=== PATIENT | male | born 1950 | race Caucasian/White ===

== ENCOUNTER 2019-06-21 23:30 | Inpatient (IN) | payer OTHER ==
[~2019-06-21] VITALS: Ht 167.6 cm; Wt 83.4 kg
[2019-06-21] MEDS ORDERED: VENL75ER PO (23:50)
[2019-06-21] MEDS ORDERED: METO25 PO (23:51)
[2019-06-21] MEDS ORDERED: OMEPRAZOLE20 MG PO (23:51)
[2019-06-21] MEDS ORDERED: ONDA4ODT PO (23:52)
[2019-06-21] MEDS ORDERED: Aspir 8181 MG PO (23:52)
[2019-06-21] MEDS ORDERED: TAMS.4ER PO (23:52)
[2019-06-21] MEDS ORDERED: GABA300 PO (23:52)
[2019-06-21] MEDS ORDERED: DEXA.5 (23:53)
[2019-06-22] LABS: Hematocrit 33.1 % (37.0-53.0); Hemoglobin 10.7 g/dL (13.5-17.5); Mean Corpuscular HGB Conc 32.3 g/dL (31.5-36.5); Mean Platelet Volume 9.3 fL (9.1-12.4); Platelet Count 56 K/mm3 (150-400); RDW Coefficient Variation 14.3 % (11.7-14.2); RDW Standard Deviation 49.7 fL (35.1-46.3); Red Blood Cell Count 3.45 M/mm3 (4.30-5.90)
[2019-06-22 00:04] LABS: BASOPHILS ABSOLUTE AUTO 0.01 K/mm3 (0.00-0.23); BASOPHILS PERCENT AUTO 1 % (0-2); EOSINOPHILS PERCENT AUTO 0 % (0-6); IMMATURE GRAN PERCENT AUTO 0 % (0-1); LYMPHOCYTES ABSOLUTE AUTO 0.59 K/mm3 (0.84-5.20); LYMPHOCYTES PERCENT AUTO 70 % (21-46); MONOCYTES ABSOLUTE AUTO 0.13 K/mm3 (0.16-1.47); MONOCYTES PERCENT AUTO 16 % (4-13); Mean Corpuscular Volume 96 fL (80-100); NEUTROPHILS ABSOLUTE AUTO 0.11 K/mm3 (1.96-9.15); NEUTROPHILS PERCENT AUTO 13 % (41-73)
[2019-06-22 00:05] LABS: White Blood Cell Count 0.84 K/mm3 (4.00-11.30)
[2019-06-22 00:17] LABS: Alanine Aminotransfer (ALT/SGP 27 U/L (12-78); Albumin, Blood 2.6 g/dL (3.4-5.0); Albumin/Globulin Ratio 0.7 (0.8-1.8); Alk Phos 82 U/L (50-136); Anion Gap 6 mmol/L (6-16); Aspartate Aminotrans (AST/SGOT 11 U/L (12-37); Bilirubin, Total 0.7 mg/dL (0.1-1.0); Blood Urea Nitrogen 24 mg/dL (8-24); Bun/Creatinine Ratio 26.4 (12.0-20.0); CO2, Blood 32 mmol/L (21-32); Calcium, Blood 7.3 mg/dL (8.5-10.1); Chloride, Blood 101 mmol/L (98-108); Creatinine, Blood 0.91 mg/dL (0.60-1.20); Globulin, Blood 3.8 g/dL (2.2-4.0); Glomerular Filtration Rate >60 (60-); Glucose, Blood 91 mg/dL (70-99); Potassium, Blood 2.9 mmol/L (3.5-5.5); Sodium, Blood 139 mmol/L (136-145); Total Protein, Blood 6.4 g/dL (6.4-8.2); Troponin I <0.015 ng/mL (0.000-0.040)
[2019-06-22 00:21] LABS: BAND PERCENT MAN 6 % (0-8); BASOPHILS PERCENT MAN 1 % (0-2); EOSINOPHILS PERCENT MAN 0 % (0-6); LYMPHOCYTES ABSOLUTE MAN 0.57 K/mm3 (0.84-5.20); LYMPHOCYTES PERCENT MAN 69 % (21-46); MONOCYTES PERCENT MAN 13 % (4-13); SEG NEUTROPHILS PERCENT MAN 6 % (41-73); TOTAL CELLS COUNTED 101
[2019-06-22 00:22] LABS: OTHER CELL PERCENT MAN 5 % (0-0)
--- NOTE | 2019-06-22 05:17 | NUR ---
Dr Lm Mc answering service notified of consult order from Dr Trujillo. THey Will follow up with .
--- NOTE | 2019-06-22 06:31 | NUR ---
68 YR OLD MALE ADMITTED TO THE FLOOR FROM THE ED WITH DX SYNCOPE AND RIGHT MIDDLE LOBE PNEUMONIA. PLACED IN NEUTROPENIC PRECAUTIONS HE HAS DX OF LUNG CANCER WITH RIGHT UPPER LOBECTOMY, GRZEGORZ TO THE BRAIN. STATED HAD CHEMO ABOUT A WEEK AND A HALF AGO. TOO WEAK TO GET UP TO STANDING WEIGH, SO WT WAS TAKEN BY BED. IV ABX INFUSING. RESP PANEL SENT TO LAB. CONSULT FOR ONCOLOGY CALLED IN TO DR BERNICE BOLAND ANSWERING SERVICE WHO SAID THEY WOULD NOTIFY MD. CALL LIGHT IN REACH,
[2019-06-22 06:39] LABS: Source, Urine Clean Catch
[2019-06-22 06:43] LABS: Blood, Urine 4+ (Neg); Glucose Qualitative, Urine Neg (Neg); Ketones, Urine 1+ (Neg); Leukocyte Esterase, Urine 1+ (Neg); Nitrite, Urine Neg (Neg); Protein, Urine 2+ (Neg); Urobilinogen, Urine 4+ (Normal)
[2019-06-22 06:52] LABS: Bilirubin, Urine 1+ (Neg)
[2019-06-22 06:53] LABS: Appearance, Urine Clear (Clear); Color, Urine Amber (P-Yellow)
[2019-06-22 06:54] LABS: Bacteria Rare /hpf; Mucus Light (0-Heavy); Red Blood Cells, Urine 25-50 /hpf (0-2); Squamous Epithelial Cells Rare /hpf (Few)
[2019-06-22 09:02] LABS: Adenovirus Not Detected (NOT DETECT); Coronavirus 229E Not Detected (NOT DETECT); Coronavirus HKU1 Not Detected (NOT DETECT); Coronavirus NL63 Not Detected (NOT DETECT); Coronavirus OC43 Not Detected (NOT DETECT); Human Metapneumovirus Not Detected (NOT DETECT); Human Rhinovirus/Enterovirus Not Detected (NOT DETECT); Influenza A Not Detected (NOT DETECT); Influenza A/H1 Not Detected (NOT DETECT)
[2019-06-22 09:03] LABS: Bordetella pertussis Not Detected (NOT DETECT); Chlamydophila pneumoniae Not Detected (NOT DETECT); Influenza A/2009-H1 Not Detected (NOT DETECT); Influenza A/H3 Not Detected (NOT DETECT); Influenza B Not Detected (NOT DETECT); Mycoplasma pneumoniae Not Detected (NOT DETECT); Parainfluenza Virus 1 Not Detected (NOT DETECT); Parainfluenza Virus 2 Not Detected (NOT DETECT); Parainfluenza Virus 3 Not Detected (NOT DETECT); Parainfluenza Virus 4 Not Detected (NOT DETECT); Respiratory Syncytial Virus Not Detected (NOT DETECT)
[2019-06-22 12:46] LABS: Alanine Aminotransfer (ALT/SGP 24 U/L (12-78); Albumin, Blood 2.3 g/dL (3.4-5.0); Albumin/Globulin Ratio 0.6 (0.8-1.8); Alk Phos 72 U/L (50-136); Anion Gap 6 mmol/L (6-16); Aspartate Aminotrans (AST/SGOT 15 U/L (12-37); Bilirubin, Total 0.7 mg/dL (0.1-1.0); Blood Urea Nitrogen 16 mg/dL (8-24); CO2, Blood 30 mmol/L (21-32); Chloride, Blood 103 mmol/L (98-108); Creatinine, Blood 0.76 mg/dL (0.60-1.20); Globulin, Blood 3.8 g/dL (2.2-4.0); Glomerular Filtration Rate >60 (60-); Glucose, Blood 100 mg/dL (70-99); Potassium, Blood 3.7 mmol/L (3.5-5.5); Sodium, Blood 139 mmol/L (136-145); Total Protein, Blood 6.1 g/dL (6.4-8.2)
--- NOTE | 2019-06-22 13:11 | NUR ---
Called to meet with patient and his daughter. Pt sitting up finished lunch. Pt alert but struggles to complete sentences. pt has been having more ringing in ears and headaches and balance disturbance he has had falls, denies vision changes or difficulty swallowing. pt feels shor in catching his breath and some struggles with deep ventilation. He states his appetite is ok and he tolerates food well. no constipation or loose stools. He is struggling with sleeping well. daughter states his tremor is worse the past few days. Review of care needs with patient and daughter. Answered questions about his labs. Daughter is awaiting Dr. Mc to review plan of care. Daughter stated physician in [place] reccomended hospice. encouraged her to wait and see what Dr. Mc has to offer. Pt does not have a polst or advance documents. They want to complete on after they speak with physician. Gave her our contact number for help with caregiver stress and support.
[2019-06-22 13:32] LABS: Hematocrit 30.4 % (37.0-53.0); Hemoglobin 9.9 g/dL (13.5-17.5); Mean Corpuscular HGB 31.1 pg (26.0-34.0); Mean Corpuscular HGB Conc 32.6 g/dL (31.5-36.5); Mean Corpuscular Volume 96 fL (80-100); NRBC ABSOLUTE 0.02 K/mm3 (0.00-0.02); NRBC Auto 2.3 /100 WBC (0.0-0.2); RDW Coefficient Variation 14.1 % (11.7-14.2); RDW Standard Deviation 48.9 fL (35.1-46.3); Red Blood Cell Count 3.18 M/mm3 (4.30-5.90)
[2019-06-22 13:36] LABS: Platelet Count 57 K/mm3 (150-400); White Blood Cell Count 0.86 K/mm3 (4.00-11.30)
--- NOTE | 2019-06-22 19:14 | NUR ---
SHIFT SUMMARY PT AWAKE DURING SHIFT REPORT, LYING HF WATCHING TV. PT AMITTED FOR RML PNM. PER SHIFT REPORT, PT WITH LUNG CA W/METS TO BRAIN. RUL ECTOMY. LAST CHEMO ABOUT 10 DAYS AGO. CONSULT CALLED TO DR BOLAND OFFICE THIS AM; DR BOLAND IN TO SEE PT THIS AFTERNOON. PT'S FAMILY IN TODAY, OFF AND ON, CONCERNED THAT PT WAS DECLINING. PALLATIVE CARE CALLED TO TALK WITH FAMILY. DAUGHTER REPORTED THAT PREVIOUS DR HAD RECOMMENDED HOSPICE. FAMILY TO DISCUSS PLAN OF CARE AFTER TALKING TO DR BOLAND. PT C/O BEING COLD, TEMP CK SHOWING 102.2. BLANKETS PULLED OFF, HEAT DECREASED, TYLENOL GIVEN. ICE BAGS PLACED TO NECK AND AXILLARY. TEMP ANTONIETA'D; DECREASED, SEE CHART. PT BECAME VERY SOB AND DYSPNEIC DURING THE DAY, THOUGH BIOX REMAINED WNL'S. PT'S BREATHING FINALLY IMPROVED SOME THIS EVENING AND PT APPEARS TO BE RESTING MORE COMFORTABLY. DECLINED TO EAT DINNER. FAMILY GONE FOR THE NIGHT TO LET PT SLEEP. BED ALARM ON FOR SAFETY. CALL LT IN REACH.
--- NOTE | 2019-06-23 00:44 | NUR ---
BEGINNING SHIFT SUMMARY ASUED CARE OF PT AT 1900. PT WAS LYING IN BED AWAKE. PT IS ALERT AND ORIENTED X3, BUT CALL INAPPROPIATELY. HEART SOUNDS REGUALR, PERIPHERAL PULSES STRONG, IV L AC, TELE RYTHMN PASCED @ 98 PER PCU APPLIED STATISTICIAN. LUNG SOUNDS DIMINISHED AND CRACKLES AT THE BASES, PT ON 0.5L O2. BOWEL TONES HYPERACTIVE, PT STATES ABDOMEN IS NORAMLLY DISTENDED, PT USES URINAL, BUT MISSES MOST OF THE TIME. PT C/O R SHOULDER PAIN, MEDICATED PER EMAR. PT IS CURRENTLY SLEEPING, CALL LIGHT IN REACH, BED IN LOWEST POSITION, BED ALARM ON, WILL CONTINUE TO MONITOR.
--- NOTE | 2019-06-23 05:50 | NUR ---
END SHIFT SUMMARY NO ACUTE CHANGES NOTED THROUGHOUT THE NIGHT. PT TRIED TO GET OUT OF BED WITHOUT COLLING ONCE THIS SHIFT. PT WAS CONTINENT ALL NIGHT. PT IS MORE ALERT AND RESTED THIS MORNING, PT STATES FEELING BETER THAN YESTERDAY. ABX RUNNING AT THIS TIME. PT HAS RETURNED BACK TO SLEEP, CALL LIGHT IN REACH, BED IN LOWEST POSTION, BED ALARM ON, WILL CONTINUE TO MONITOR UNTIL DAYSHIFT NURSE ARRIVES.
[2019-06-23 06:14] LABS: BASOPHILS ABSOLUTE AUTO 0.02 K/mm3 (0.00-0.23); BASOPHILS PERCENT AUTO 1 % (0-2); Hematocrit 29.4 % (37.0-53.0); Hemoglobin 9.6 g/dL (13.5-17.5); Mean Corpuscular HGB 30.6 pg (26.0-34.0); Mean Corpuscular HGB Conc 32.7 g/dL (31.5-36.5); Mean Corpuscular Volume 94 fL (80-100); Mean Platelet Volume 10.3 fL (9.1-12.4); Platelet Count 59 K/mm3 (150-400); RDW Coefficient Variation 14.4 % (11.7-14.2); Red Blood Cell Count 3.14 M/mm3 (4.30-5.90); White Blood Cell Count 1.92 K/mm3 (4.00-11.30)
[2019-06-23 06:19] LABS: EOSINOPHILS PERCENT AUTO 0 % (0-6); IMMATURE GRAN ABSOLUTE AUTO 0.03 K/mm3 (0.00-0.10); IMMATURE GRAN PERCENT AUTO 2 % (0-1); LYMPHOCYTES ABSOLUTE AUTO 0.49 K/mm3 (0.84-5.20); LYMPHOCYTES PERCENT AUTO 26 % (21-46); MONOCYTES ABSOLUTE AUTO 0.23 K/mm3 (0.16-1.47); MONOCYTES PERCENT AUTO 12 % (4-13); NEUTROPHILS ABSOLUTE AUTO 1.15 K/mm3 (1.96-9.15); NEUTROPHILS PERCENT AUTO 60 % (41-73)
[2019-06-23 06:28] LABS: Anion Gap 6 mmol/L (6-16); Blood Urea Nitrogen 16 mg/dL (8-24); Bun/Creatinine Ratio 22.5 (12.0-20.0); CO2, Blood 31 mmol/L (21-32); Chloride, Blood 102 mmol/L (98-108); Creatinine, Blood 0.71 mg/dL (0.60-1.20); Glomerular Filtration Rate >60 (60-); Glucose, Blood 90 mg/dL (70-99); Potassium, Blood 3.1 mmol/L (3.5-5.5); Sodium, Blood 139 mmol/L (136-145)
--- NOTE | 2019-06-23 16:29 | NUR ---
SHIFT SUMMARY NO ACUTE CHANGES THIS SHIFT. MEDICATED X1 FOR PAIN MEDICATIN THIS SHIFT. PT APETIE WAS POOR DURING THE SHIFT AND DIETARY CONSULT WAS PLACED. PT FAMILY BROUGHT IN FOOD. CALL LIGHT WITH IN REACH AND WILL COUNTINUE TO MONITOR THE REMAINDER OF THE SHIFT. WILL REPORT TO LUCIA RN.
[2019-06-24 05:27] LABS: Hematocrit 28.6 % (37.0-53.0); Hemoglobin 9.5 g/dL (13.5-17.5); Mean Corpuscular HGB 31.6 pg (26.0-34.0); Mean Corpuscular HGB Conc 33.2 g/dL (31.5-36.5); Mean Corpuscular Volume 95 fL (80-100); NRBC ABSOLUTE 0.02 K/mm3 (0.00-0.02); NRBC Auto 0.7 /100 WBC (0.0-0.2); Platelet Count 75 K/mm3 (150-400); RDW Coefficient Variation 14.6 % (11.7-14.2); RDW Standard Deviation 49.2 fL (35.1-46.3); Red Blood Cell Count 3.01 M/mm3 (4.30-5.90); White Blood Cell Count 3.03 K/mm3 (4.00-11.30)
[2019-06-24 05:45] LABS: BAND PERCENT MAN 7 % (0-8); BASOPHILS PERCENT MAN 0 % (0-2); EOSINOPHILS PERCENT MAN 0 % (0-6); LYMPHOCYTES % ATYPICAL MANUAL 1 % (0-0); LYMPHOCYTES ABSOLUTE MAN 0.48 K/mm3 (0.84-5.20); LYMPHOCYTES PERCENT MAN 15 % (21-46); MONOCYTES PERCENT MAN 10 % (4-13); NEUTROPHILS ABSOLUTE MAN 2.24 K/mm3 (1.96-9.15); SEG NEUTROPHILS PERCENT MAN 67 % (41-73); TOTAL CELLS COUNTED 100
[2019-06-24 06:18] LABS: Anion Gap 8 mmol/L (6-16); Blood Urea Nitrogen 18 mg/dL (8-24); Bun/Creatinine Ratio 22.1 (12.0-20.0); CO2, Blood 29 mmol/L (21-32); Calcium, Blood 6.8 mg/dL (8.5-10.1); Chloride, Blood 102 mmol/L (98-108); Creatinine, Blood 0.81 mg/dL (0.60-1.20); Glomerular Filtration Rate >60 (60-); Glucose, Blood 91 mg/dL (70-99); Potassium, Blood 3.3 mmol/L (3.5-5.5); Sodium, Blood 139 mmol/L (136-145)
--- NOTE | 2019-06-24 18:33 | NUR ---
SHIFT SUMMARY NO ACUTE CHANGES THIS SHIFT. MEDICATED X1 FOR A HEADACHE. PT APETITE HAS INCREASED TODAY. BED ALARM ON AND CALL LIGHT WITH IN REACH. UP TODAY FOR ALL MEALS.
[2019-06-25 05:28] LABS: Hematocrit 28.2 % (37.0-53.0); Hemoglobin 9.1 g/dL (13.5-17.5); Mean Corpuscular HGB Conc 32.3 g/dL (31.5-36.5); Mean Corpuscular Volume 96 fL (80-100); Mean Platelet Volume 10.4 fL (9.1-12.4); NRBC ABSOLUTE 0.03 K/mm3 (0.00-0.02); NRBC Auto 1.2 /100 WBC (0.0-0.2); Platelet Count 89 K/mm3 (150-400); RDW Coefficient Variation 14.9 % (11.7-14.2); RDW Standard Deviation 51.3 fL (35.1-46.3); Red Blood Cell Count 2.94 M/mm3 (4.30-5.90); White Blood Cell Count 2.57 K/mm3 (4.00-11.30)
[2019-06-25 05:51] LABS: Anion Gap 6 mmol/L (6-16); Blood Urea Nitrogen 20 mg/dL (8-24); Bun/Creatinine Ratio 25.8 (12.0-20.0); CO2, Blood 30 mmol/L (21-32); Calcium, Blood 6.9 mg/dL (8.5-10.1); Chloride, Blood 105 mmol/L (98-108); Creatinine, Blood 0.78 mg/dL (0.60-1.20); Glomerular Filtration Rate >60 (60-); Glucose, Blood 88 mg/dL (70-99); Potassium, Blood 3.3 mmol/L (3.5-5.5); Sodium, Blood 141 mmol/L (136-145)
[2019-06-25 06:08] LABS: BAND PERCENT MAN 3 % (0-8); BASOPHILS PERCENT MAN 0 % (0-2); EOSINOPHILS PERCENT MAN 0 % (0-6); LYMPHOCYTES ABSOLUTE MAN 0.28 K/mm3 (0.84-5.20); LYMPHOCYTES PERCENT MAN 11 % (21-46); MONOCYTES ABSOLUTE MAN 0.15 K/mm3 (0.16-1.47); MONOCYTES PERCENT MAN 6 % (4-13); MYELOCYTE ABSOLUTE MAN 0.02 K/mm3 (0.00-0.00); MYELOCYTE PERCENT MAN 1 % (0-0); SEG NEUTROPHILS PERCENT MAN 79 % (41-73); TOTAL CELLS COUNTED 100
--- NOTE | 2019-06-25 06:18 | NUR ---
patient slept all night. rather restless in his sleep, the patient would turn back and forth, pull off covers and gown without waking, then would allow staff to wake him to get him in a more comfortable position and replace covers and he would immediately go back to sleep. patient is very concerned about the tremors he is experiencing. They do appera to be more significant tonight than last night. stomach "rolling over" at HS accompanied by mild headache. these were both totally relieved with tylenol and IV zofran.
--- NOTE | 2019-06-25 18:06 | NUR ---
SHIFT SUMMARY NO CHANGES IN ASSESSMENT AT THIS TIME. VSS. PT CURRENTLY RESTING IN BED. CALL LIGHT IN REACH. DENIES PAIN THIS SHIFT. WILL CONTINUE TO MONITOR UNTIL TURNOVER IS COMPLETE. PT IS POSSIBLE DC TOMORROW.
--- NOTE | 2019-06-26 03:34 | NUR ---
SHIFT SUMMARY AOX4. LS CLEAR, DENIES SOB. NO C/O NAUSEA. PAIN 5/10 IN NECK/BACK REGION. TYLENOL @ 2029. SCATTERED BRUISING ON ARMS. 1 ASSIST WITH WALKER AND GAIT BELT TO BATHROOM. TREMORS. BED ALARM. IV IN L HAND - SL. PLAN IS TO DC TODAY HOME WITH CAREGIVERS. VSS ON RA.
[2019-06-26 05:19] LABS: Hematocrit 30.1 % (37.0-53.0); Hemoglobin 9.5 g/dL (13.5-17.5); Mean Corpuscular HGB 30.6 pg (26.0-34.0); Mean Corpuscular HGB Conc 31.6 g/dL (31.5-36.5); Mean Corpuscular Volume 97 fL (80-100); Mean Platelet Volume 10.2 fL (9.1-12.4); NRBC ABSOLUTE 0.04 K/mm3 (0.00-0.02); NRBC Auto 1.3 /100 WBC (0.0-0.2); Platelet Count 116 K/mm3 (150-400); RDW Coefficient Variation 15.4 % (11.7-14.2); RDW Standard Deviation 53.2 fL (35.1-46.3); White Blood Cell Count 3.05 K/mm3 (4.00-11.30)
[2019-06-26 05:51] LABS: BASOPHILS PERCENT MAN 0 % (0-2); EOSINOPHILS PERCENT MAN 0 % (0-6); LYMPHOCYTES ABSOLUTE MAN 0.57 K/mm3 (0.84-5.20); LYMPHOCYTES PERCENT MAN 19 % (21-46); METAMYELOCYTE ABSOLUTE MAN 0.03 K/mm3 (0.00-0.00); METAMYELOCYTE PERCENT MAN 1 % (0-0); MONOCYTES ABSOLUTE MAN 0.39 K/mm3 (0.16-1.47); MONOCYTES PERCENT MAN 13 % (4-13); MYELOCYTE ABSOLUTE MAN 0.03 K/mm3 (0.00-0.00); MYELOCYTE PERCENT MAN 1 % (0-0); NEUTROPHILS ABSOLUTE MAN 2.01 K/mm3 (1.96-9.15); SEG NEUTROPHILS PERCENT MAN 66 % (41-73); TOTAL CELLS COUNTED 100
[2019-06-26 05:55] LABS: Anion Gap 7 mmol/L (6-16); Blood Urea Nitrogen 17 mg/dL (8-24); Bun/Creatinine Ratio 21.7 (12.0-20.0); CO2, Blood 30 mmol/L (21-32); Calcium, Blood 6.9 mg/dL (8.5-10.1); Chloride, Blood 106 mmol/L (98-108); Creatinine, Blood 0.78 mg/dL (0.60-1.20); Glomerular Filtration Rate >60 (60-); Glucose, Blood 80 mg/dL (70-99); Phosphorus, Blood 2.8 mg/dL (2.5-4.9); Potassium, Blood 3.8 mmol/L (3.5-5.5); Sodium, Blood 143 mmol/L (136-145)
[2019-06-26 06:14] LABS: Magnesium, Blood 0.7 mg/dL (1.6-2.4)
--- NOTE | 2019-06-26 06:32 | NUR ---
HOSPITALIST PAGED ABOUT CRITICAL LAB OF MG 0.7. DID NOT ANSWER, WAITING FOR CALL BACK.
[2019-06-26] MEDS ORDERED: LEVFLO500 PO (11:15)
[2019-06-26] MEDS ORDERED: Florastor250 MG PO (11:15)
[2019-06-26] MEDS ORDERED: GUAI600T33 PO (11:15)
[2019-06-26] MEDS ORDERED: Xopenex Hfa15 GM INH (11:16)
--- NOTE | 2019-06-26 12:20 | NUR ---
REVIEW D'C. REVIEW ALL NEW MEDS AND ADVISED TO ZIPPER TRIMMER AT [facility]. AWARE TO MAKE F/U APPT W/. ANSWER ALL QUESTIONS. IN W/C /RADIO COMMENTATOR TO POV
== END 2019-06-26 12:38 | disposition home or self-care (01) | DRG 193 ==
LOC: ER 23:30 → MEDS 06-22 03:48 → ENPENDDIS 06-26 10:00 → MEDS 06-26 12:38
PROVIDERS: Internal Medicine; Physician Assistant; ADMIT Internal Medicine
DX: J18.9 Pneumonia, unspecified organism (principal); J96.01 Acute respiratory failure with hypoxia; D61.818 Other pancytopenia; C79.31 Secondary malignant neoplasm of brain; C79.51 Secondary malignant neoplasm of bone; K21.9 Gastro-esophageal reflux disease without esophagitis; N40.0 Benign prostatic hyperplasia without lower urinary tract symptoms; E87.6 Hypokalemia; F17.210 Nicotine dependence, cigarettes, uncomplicated; Z85.118 Personal history of other malignant neoplasm of bronchus and lung; Z92.21 Personal history of antineoplastic chemotherapy; Z88.0 Allergy status to penicillin; Z79.82 Long term (current) use of aspirin; Z79.899 Other long term (current) drug therapy
CPT/HCPCS: 0099U; 36415; 71045; 80048; 80053; 81001; 83735; 83880; 84100; 84145; 84484; 85025; 85027; 87040; 87077; 87086; 87186; 93005; 93010; 94640; 94760; 96365; 97110; 97162; 97530; 99285-25; A9270; J0696; J1447; J1650; J1956; J2405; J3475; J7030

== ENCOUNTER 2020-02-06 19:11 | Emergency (ER) | payer OTHER ==
[~2020-02-06] VITALS: Ht 177.8 cm; Wt 81.7 kg
[~2020-02-06 19:11] MED LIST: Aspir 8181 MG PO; DEXA.5; Florastor250 MG PO; GUAI600T33 PO; LEVFLO500 PO; ONDA4ODT PO; Xopenex Hfa15 GM INH
[2020-02-06 19:54] LABS: BASOPHILS ABSOLUTE AUTO 0.04 K/mm3 (0.00-0.23); BASOPHILS PERCENT AUTO 1 % (0-2); EOSINOPHILS ABSOLUTE AUTO 0.07 K/mm3 (0.00-0.68); EOSINOPHILS PERCENT AUTO 1 % (0-6); Hemoglobin 13.6 g/dL (13.5-17.5); IMMATURE GRAN ABSOLUTE AUTO 0.02 K/mm3 (0.00-0.10); IMMATURE GRAN PERCENT AUTO 0 % (0-1); LYMPHOCYTES ABSOLUTE AUTO 1.25 K/mm3 (0.84-5.20); LYMPHOCYTES PERCENT AUTO 21 % (21-46); MONOCYTES ABSOLUTE AUTO 0.96 K/mm3 (0.16-1.47); MONOCYTES PERCENT AUTO 16 % (4-13); Mean Corpuscular HGB 28.9 pg (26.0-34.0); Mean Corpuscular HGB Conc 31.6 g/dL (31.5-36.5); Mean Corpuscular Volume 91 fL (80-100); Mean Platelet Volume 9.5 fL (9.1-12.4); NEUTROPHILS ABSOLUTE AUTO 3.67 K/mm3 (1.96-9.15); NEUTROPHILS PERCENT AUTO 61 % (41-73); Platelet Count 186 K/mm3 (150-400); RDW Coefficient Variation 13.7 % (11.7-14.2); RDW Standard Deviation 46.4 fL (35.1-46.3); Red Blood Cell Count 4.71 M/mm3 (4.30-5.90); White Blood Cell Count 6.01 K/mm3 (4.00-11.30)
[2020-02-06 20:14] LABS: Alanine Aminotransfer (ALT/SGP 13 U/L (12-78); Albumin, Blood 3.2 g/dL (3.4-5.0); Albumin/Globulin Ratio 0.9 (0.8-1.8); Alk Phos 83 U/L (50-136); Anion Gap 4 mmol/L (6-16); Aspartate Aminotrans (AST/SGOT 16 U/L (12-37); Bilirubin, Total 0.3 mg/dL (0.1-1.0); Blood Urea Nitrogen 19 mg/dL (8-24); Bun/Creatinine Ratio 16.7 (12.0-20.0); CO2, Blood 32 mmol/L (21-32); Calcium, Blood 8.9 mg/dL (8.5-10.1); Chloride, Blood 104 mmol/L (98-108); Creatinine, Blood 1.14 mg/dL (0.60-1.20); Globulin, Blood 3.5 g/dL (2.2-4.0); Glomerular Filtration Rate >60 (60-); Glucose, Blood 90 mg/dL (70-99); Potassium, Blood 4.4 mmol/L (3.5-5.5); Sodium, Blood 140 mmol/L (136-145); Total Protein, Blood 6.7 g/dL (6.4-8.2); Troponin I <0.015 ng/mL (0.000-0.040)
[2020-02-06] MEDS ORDERED: VENL75ER PO (20:44)
[2020-02-06] MEDS ORDERED: OMEPRAZOLE20 MG PO (20:45)
[2020-02-06] MEDS ORDERED: TAMS.4ER PO (20:45)
[2020-02-06] MEDS ORDERED: METO25 PO (20:45)
[2020-02-06] MEDS ORDERED: GABA300 PO (20:46)
[2020-02-06] MEDS ORDERED: GABA400 PO (20:47)
[2020-02-06] MEDS ORDERED: OXYC10ER PO (20:47)
[2020-02-06] MEDS ORDERED: MEMA5TAB PO (20:48)
[2020-02-06] MEDS ORDERED: HYDHCL25 PO (20:49)
[2020-02-06] MEDS ORDERED: GEMF600 PO (20:49)
== END 2020-02-06 21:51 | disposition home or self-care (01) ==
LOC: ER 19:11
PROVIDERS: Emergency Medicine
DX: Z00.8 Encounter for other general examination (principal); Z88.0 Allergy status to penicillin; Z79.82 Long term (current) use of aspirin; Z79.899 Other long term (current) drug therapy; I10 Essential (primary) hypertension; K21.9 Gastro-esophageal reflux disease without esophagitis; G62.9 Polyneuropathy, unspecified; F17.210 Nicotine dependence, cigarettes, uncomplicated
CPT/HCPCS: 71046; 80053; 83880; 84484; 85025; 99284-25